=== PATIENT | female | born 1970 | race Caucasian/White ===

== ENCOUNTER → 2020-07-18 | Outpatient (CLI) | payer BC ==
--- NOTE | 2020-07-20 13:32 | MM ---
Reason for exam: screening (asymptomatic). Last mammogram was performed 4 years and 6 months ago. History: Took hormonal contraceptives for 4 years. Physical Findings: A clinical breast exam by your physician is recommended on an annual basis and results should be correlated with mammographic findings. MG 3D Screening Mammo W/Cad Bilateral CC and MLO view(s) were taken. Prior study comparison: January 23, 2016, bilateral MG 3d diag mammo w/cad BENJAMIN. July 17, 2015, bilateral MG 3d work up w/cad BENJAMIN. The breast tissue is extremely dense which could obscure a lesion on mammography. No significant changes when compared with prior studies. ASSESSMENT: Benign, BI-RAD 2 RECOMMENDATION: Routine screening mammogram of both breasts in 1 year.
== END | disposition home or self-care (01) ==
LOC: RADMAMWWP 13:59
PROVIDERS: ATTEND Obstetrics & Gynecology
DX: Z12.31 Encounter for screening mammogram for malignant neoplasm of breast (principal)
CPT/HCPCS: 77063; 77067

== ENCOUNTER → 2020-07-18 | Outpatient (CLI) | payer BC ==
[2020-07-18 18:57] LABS: HGB 13.7 g/dL (12.0-15.0); MCH 30.2 pg (27.0-32.0); MCHC 32.6 g/dL (32.0-37.0); MCV 92.7 fL (80.0-97.0); Mean Platelet Volume 10.9 fL (9.5-12.2); Platelet Count 275 X 10*3/uL (140-440); RBC 4.53 X 10*6/uL (4.10-5.20); RDW 13.2 % (11.5-14.5); WBC 10.31 X 10*3/uL (4.50-10.00)
[2020-07-19 00:09] LABS: Albumin 4.6 g/dL (3.80-4.90); Albumin/Globulin Ratio 2.19 (1.60-3.17); Anion Gap 12.8 mmol/L (4.00-12.00); Calcium 9.3 mg/dL (8.7-10.3); Carbon Dioxide 24.2 mmol/L (21.6-31.8); Chol/HDL Ratio 2.67; Globulin 2.1 g/dL (1.6-3.3); Non-African American GFR(CKD) 87.2 (60.0-200.0); Potassium 4.3 mmol/L (3.5-5.5); Total Bilirubin 0.8 mg/dL (0.2-1.2); Total Protein 6.7 g/dL (6.2-8.2)
== END | disposition home or self-care (01) ==
LOC: LABWHC1 12:50
PROVIDERS: ATTEND Physician Assistant
DX: L65.9 Nonscarring hair loss, unspecified (principal); R61 Generalized hyperhidrosis; R53.83 Other fatigue
CPT/HCPCS: 36415; 80053; 80061; 82306; 84439; 84443; 85027

== ENCOUNTER → 2021-09-15 | Outpatient (CLI) | payer BC ==
[2021-09-15 16:08] LABS: Basophils # (A) 0.05 X 10*3/uL (0.00-0.10); Basophils % (A) 0.7 %; Eosinophils # (A) 0.07 X 10*3/uL (0.04-0.35); Eosinophils % (A) 0.9 %; HCT 41.2 % (37.2-46.3); HGB 13.2 g/dL (12.0-15.0); Immature Grans, Automated 0.3 %; Lymphocytes # (A) 1.74 X 10*3/uL (0.90-5.00); Lymphocytes % (A) 23.5 %; MCH 29.5 pg (27.0-32.0); MCV 92.2 fL (80.0-97.0); Mean Platelet Volume 11.2 fL (9.5-12.2); Monocytes # (A) 0.39 X 10*3/uL (0.20-1.00); Monocytes % (A) 5.3 %; NRBC Per 100 WBC 0 /100 WBCS (0.0-0.0); Neutrophils # (A) 5.13 X 10*3/uL (1.80-7.70); Neutrophils % (A) 69.3 %; Platelet Count 284 X 10*3/uL (140-440); RBC 4.47 X 10*6/uL (4.10-5.20); RDW 13.4 % (11.5-14.5)
== END | disposition home or self-care (01) ==
LOC: LABPAT 09:39
PROVIDERS: ATTEND Obstetrics & Gynecology
DX: Z01.812 Encounter for preprocedural laboratory examination (principal); N92.1 Excessive and frequent menstruation with irregular cycle
CPT/HCPCS: 85025

== ENCOUNTER 2021-09-17 09:43 | Day surgery (SDC) | payer BC ==
--- NOTE | 2021-09-06 14:38 | HP ---
HISTORY AND PHYSICAL DATE OF SURGERY: 09/17/2021 HISTORY OF PRESENT ILLNESS: The patient is a 51-year-old 3, para 2-0-1-2, who presents to the office with a relatively longstanding history of increasing menometrorrhagia. The heavy bleeding is random in timing and lasts for 7 to 10 days at a time. She does occasionally bleed through protection. Ultrasound in the office demonstrates essentially normal findings, though she does have a relatively thickened endometrial stripe. Her has had a vasectomy and she is not interested in hormonal manipulation. She has requested to proceed with endometrial ablation. PAST MEDICAL HISTORY: None. PAST SURGICAL HISTORY: Significant for a previous section x2 as well as a LEEP preceding those C- sections. She also has a remote history of a tonsillectomy. There is no reported history of anesthetic concerns. OBSTETRICAL HISTORY: 3, para 2-0-1-2 with two term sections and one early miscarriage not requiring D and C. Current method of contraception is vasectomy. GYNECOLOGIC HISTORY: Unremarkable with no history of any infections to include STDs. FAMILY HISTORY: Noncontributory. 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 She is a nonsmoker and reports only occasional alcohol. No other social concerns. CURRENT MEDICATIONS: None. ALLERGIES: BEE STINGS AND REPORTEDLY TO HONEY. She has NO KNOWN DRUG ALLERGIES. REVIEW OF SYSTEMS: Confined to history of present illness. PHYSICAL EXAMINATION: Vital signs are stable. The patient is afebrile. In general this is a well-developed, well-nourished white female in no acute distress. Her heart has a regular rhythm and rate without murmur. Her lungs are clear to auscultation bilaterally in all marcos. Her abdomen is nondistended, has normoactive bowel sounds, is soft, nontender, and without any masses, hepatosplenomegaly or hernias. Her extremities are without any cyanosis, clubbing or edema and are nontender to palpation bilaterally. Pelvic examination demonstrates normal external genitalia and BUS with normal vaginal mucosa and cervix. There is no cervical motion tenderness. The uterus is approximately 4 to 5 weeks in size, mid plane, mobile, nontender, normal in shape. Endometrial biopsy performed at the exam was benign, at which time the uterus sounded to 8 cm. The adnexa are normal and nontender without mass bilaterally. ASSESSMENT AND PLAN: Menometrorrhagia: The patient has requested diagnostic hysteroscopy with NovaSure endometrial ablation. As the biopsy results have returned benign, we will proceed. The risks and complications of the procedure have been thoroughly discussed, including the risk for bleeding, bleeding requiring transfusion, infection, and injury to local structures to specifically include uterine perforation, Asherman syndrome and potential hematometra. She has understood all this and agreed to proceed. We are scheduled for the procedures as outlined above on the morning of Friday, September 17, 2021. MMODL / IJN: [id number] /
[~2021-09-17 09:43] MED LIST: Pre Op ABX Message 1 EACH MISC MISCELLANE ONE
[2021-09-17] MEDS ORDERED: LACTATED RINGERS 1,000 ML IV ONE (10:32)
[2021-09-17] MEDS ORDERED: ONDANSETRON 4 MG/2 ML VIAL ONE (10:35)
[2021-09-17] MEDS ORDERED: SCOPOLAMINE 1 MG/72 HR PATCH TRANSDERM ONE (10:37)
[2021-09-17] MEDS ORDERED: DEXAMETHASONE SOD PHOSPHATE 4 MG/ML 1 ML VIAL IVP ONE (10:37)
[2021-09-17] MEDS ORDERED: MIDAZOLAM 2 MG/2 ML VIAL IVP ONE (10:39)
[2021-09-17] MEDS ORDERED: KETOROLAC 15 MG/ML 1 ML VIAL ONE (11:47)
[2021-09-17] MEDS ORDERED: PROPOFOL 10 MG/ML 20 ML VIAL IV ONE (11:47)
[2021-09-17] MEDS ORDERED: LIDOCAINE 2% INJ 20 MG/ML (2 ML VIAL) ONE (11:47)
[2021-09-17] MEDS ORDERED: fentaNYL (PF) 50 MCG/ML 2 ML AMP ONE (11:47)
[2021-09-17] MEDS ORDERED: METOCLOPRAMIDE 5 MG/ML 2 ML VIAL IVP PRN (12:15)
[2021-09-17] MEDS ORDERED: SIMETHICONE 80 MG CHEWABLE PO PRN (12:15)
[2021-09-17] MEDS ORDERED: LACTATED RINGERS 1,000 ML IV SCH (12:15)
[2021-09-17] MEDS ORDERED: KETOROLAC 15 MG/ML 1 ML VIAL IVP PRN (12:15)
[2021-09-17] MEDS ORDERED: IBUPROFEN 600 MG TAB PO PRN (12:15)
[2021-09-17] MEDS ORDERED: ONDANSETRON 4 MG/2 ML VIAL IVP PRN (12:15)
[2021-09-17] MEDS ORDERED: Acetaminophen-Codeine 300-30mg TAB PO PRN ×2 (12:15)
[2021-09-17] MEDS ORDERED: diphenhydrAMINE 50 MG/ML 1 ML VIAL IVP PRN (12:15)
--- NOTE | 2021-09-17 12:23 | P.OP ---
Date of Procedure: 09/17/21 Preoperative Diagnosis: #1. Menometrorrhagia Postoperative Diagnosis: Same Procedure(s) Performed: #1. Diagnostic hysteroscopy #2. NovaSure endometrial ablation Anesthesia: other (Gen. by LMA) Surgeon: Harish Torres Estimated Blood Loss (ml): 5 IV fluids (ml): 300 Urine output (ml): 100 Pathology: none sent Condition: stable Disposition: PACU Operative Findings: Preoperative pelvic examination demonstrated a roughly 5 week anteverted mobile normal shaped uterus with normal adnexa bilaterally. Intraoperatively, the uterus sounded to approximate 9 cm while the cervix was approximate 3-1/2 cm in length. The hysteroscope demonstrated no evidence of pathology and the bilateral tubal ostia were seen. The settings for the NovaSure tool where a length of 5.5 cm, a width of 4.1 cm for a total power 124 W. After a run time of 1 minute and 43 seconds, the base unit read "procedure complete." The postprocedural result appeared to be excellent. The patient is a relatively poor candidate for vaginal hysterectomy and would be better served with a da Sharon approach should become necessary. Description of Procedure: The patient was prepped and draped in usual fashion after general anesthesia was admission by the anesthesiologist. A weighted speculum was placed in the anterior lip the surgical instrument technician a single-tooth tenaculum which was ultimately treated for an Allis clamp as the cervix was relatively flush with the apex of the vagina. The bladder was catheterized for approximately 100 mL of clear tang urine. Serial dilation was carried out after sounding the uterus to 9 cm with a cervical length of 3.5 cm. The diagnostic scope was placed and the cavity filled with normal saline. The findings are as noted above with no evidence of pathology and the bilateral tubal ostia seen. The scope was set aside and the NovaSure tool introduced into the cavity, opened, and seated well. The settings are as above with a length of 5.5 cm, a width of 4.1 cm for a total power 124 W. The cavity check was attempted and passed without difficulty. The tool was enabled and the run was started. After total run time of 1 minute and 43 seconds, the base unit read "procedure complete." The 2 was closed, removed, and discarded. The diagnostic scope was replaced into the endometrial cavity and the findings appear to be excellent. Estimated blood loss for the case was approximate 5 mL. All instrumentation was removed and there was no ongoing bleeding from the cervix either the Allis her tenaculum points nor from the os. All sponge, instrument, needle counts were correct. The patient tolerated the procedure well and proceeded to the recovery room in stable condition. She is relatively poor candidate for vaginal hysterectomy should become necessary in the future.
[2021-09-17 12:33] VITALS: TEMP 97.5
[2021-09-17] MEDS ORDERED: ACETAMINOPHEN TAB 500 MG TAB PO ONE ×2 (14:00)
[2021-09-17] MEDS ORDERED: ACETAMINOPHEN TAB 500 MG TAB ONE (14:01)
[2021-09-17 14:14] VITALS: BP 109/70; PULSE 77; RESP 20
== END 2021-09-17 14:18 | disposition home or self-care (01) ==
LOC: OR 09:43
PROVIDERS: ATTEND Obstetrics & Gynecology
DX: N92.1 Excessive and frequent menstruation with irregular cycle (principal); Z91.030 Bee allergy status; Z98.891 History of uterine scar from previous surgery
CPT/HCPCS: 58563; 81025; J2250; J1100; J2405; J3010; J1885; J2704; J2001